=== PATIENT | male | born 1970 | race Caucasian/White ===

== ENCOUNTER 2023-03-14 05:56 | Day surgery (SDC) | payer OTHER, SELFPAY ==
[2023-03-12 13:57] VITALS: BMI 30.7
[2023-03-14 06:16] VITALS: BP 160/91; PULSE 51; RESP 18; TEMP 36.1; O2SAT 98
[2023-03-14] MEDS: sodium chloride 0.9% 1,000 ML 30 ML IV (06:16)
--- NOTE | 2023-03-14 06:54 | W.PM.OPSFHP ---
Same Day Surgery H&P Indication for Procedure/HPI DATE OF PROCEDURE: March 14, 2023 CHIEF COMPLAINT/INDICATIONFOR SURGICAL PROCEDURE: need for screening colonoscopy PREOP DIAGNOSIS: colorectal cancer screening, average risk. PLANNED PROCEDURE: Operation Date: 03/14/23 07:00 Proposed Procedures p Colonoscopy 19497,Z12.11(Not Applicable) - Robinson Ford MD Medications/Allergies* Home Medications Medication Instructions Recorded Confirmed Type albuterol (refill) 90 90 mcg inhalation Q4H PRN 01/30/23 03/14/23 History mcg/actuation aerosol inhaler Shortness Of Breath aspirin 81 mg tablet 81 mg PO DAILY 01/30/23 03/14/23 History b12 1,000 mcg PO DAILY 01/30/23 03/14/23 History bupropion HCl 150 mg 24 hr tablet, 150 mg PO QAM 01/30/23 03/14/23 History extended release cholecalciferol (vitamin D3) 25 25 mcg PO DAILY 01/30/23 03/14/23 History mcg (1,000 unit) capsule fluticasone propionate 50 1 spray intranasal BID 01/30/23 03/14/23 History mcg/actuation nasal spray,suspension gabapentin 100 mg capsule 100 mg PO BID 01/30/23 03/14/23 History hydrochlorothiazide 25 mg tablet 25 mg PO QAM 01/30/23 03/14/23 History losartan 100 mg tablet 100 mg PO DAILY 01/30/23 03/14/23 History meloxicam 15 mg tablet 15 mg PO DAILY 01/30/23 03/14/23 History multivitamin 1 tab PO DAILY 01/30/23 03/14/23 History oxycodone-acetaminophen 5 mg-325 1 tab PO BID PRN Pain 01/30/23 03/14/23 History mg tablet (Percocet) pantoprazole 40 mg tablet,delayed 40 mg PO BID 01/30/23 03/14/23 History release potassium chloride 10 mEq 10 meq PO DAILY 01/30/23 03/14/23 History capsule,extended release amlodipine 5 mg tablet 10 mg PO DAILY 03/12/23 03/14/23 History Allergies/Adverse Reactions Allergy/AdvReac Type Severity Reaction Status Date / Time lisinopril Allergy ADR-Cough Uncoded 03/14/23 06:08 Current Medications: Generic Name Dose Route Start Last Admin Trade Name Freq PRN Reason Stop Dose Admin Sodium Chloride 1,000 mls @ 30 mls/hr 03/14/23 06:00 03/14/23 06:16 Sodium Chloride 0.9% IV 30 mls/hr .Q24H NATHANIEL Administration Pertinent Exam Findings alert, oriented x 3, clear to auscultation bilaterally, regular rate & rhythm and procedure specific exam findings (abdomen soft, non tender) Recommendations Surgery/Procedure today Coding Level of Care Code Acute Code for Chg Fwd Diagnoses
--- NOTE | 2023-03-14 06:56 | P.ANESASSM_ITS ---
Pre-Anesthetic Assessment Height/Weight: Height 1.8 m Weight 99.79 kg Temp Pulse Resp BP Pulse Ox O2 Del Method 97.0 F L 51 L 18 160/91 98 Room Air 03/14/23 06:16 03/14/23 06:16 03/14/23 06:16 03/14/23 06:16 03/14/23 06:16 03/14/23 06:16 Preop Diagnosis: colorectal cancer screening, average risk. Operation Date: 03/14/23 07:00 Proposed Procedures p Colonoscopy 03942,Z12.11(Not Applicable) - Robinson Ford MD Familial anesthetic complications: none Was Beta Kleber taken within 24 hours: N/A Was Clonidine taken within 24 hours: N/A Last intake: Intake Last Liquid Date 03/13/23 Last Liquid Time 22:00 Last Solid Date 03/12/23 Last Solid Time 18:30 Social No alcohol and No tobacco Exam alert and oriented x 3 Airway Submandibular: within normal limits Cervical ROM: within normal limits Mallampati: Class II History/ROS No significant history except as noted Pulmonary Sleep Apnea CV/HEM Hypertension None reported Hepatic None reported GI Gastroesophageal Reflux Disease Metabolic None reported Musc/skel None reported Neuropsych None reported Anesthetic Plan ASA status: 3 Anesthesia: Anesthesia Evaluation, General and MAC Risk of > 500 ml blood loss (7ml/kg in children): No Medications/Allergies Home Medications Medication Instructions Recorded Confirmed Last Taken Type albuterol (refill) 90 90 mcg inhalation Q4H PRN 01/30/23 03/14/23 1 Week Ago History mcg/actuation aerosol inhaler Shortness Of Breath ~03/07/23 aspirin 81 mg tablet 81 mg PO DAILY 01/30/23 03/14/23 03/11/23 History b12 1,000 mcg PO DAILY 01/30/23 03/14/23 03/13/23 History bupropion HCl 150 mg 24 hr tablet, 150 mg PO QAM 01/30/23 03/14/23 03/13/23 History extended release cholecalciferol (vitamin D3) 25 25 mcg PO DAILY 01/30/23 03/14/23 03/13/23 History mcg (1,000 unit) capsule fluticasone propionate 50 1 spray intranasal BID 01/30/23 03/14/23 03/13/23 His tory mcg/actuation nasal spray,suspension gabapentin 100 mg capsule 100 mg PO BID 01/30/23 03/14/23 03/13/23 History hydrochlorothiazide 25 mg tablet 25 mg PO QAM 01/30/23 03/14/23 03/13/23 History losartan 100 mg tablet 100 mg PO DAILY 01/30/23 03/14/23 03/13/23 History meloxicam 15 mg tablet 15 mg PO DAILY 01/30/23 03/14/23 03/13/23 History multivitamin 1 tab PO DAILY 01/30/23 03/14/23 03/13/23 History oxycodone-acetaminophen 5 mg-325 1 tab PO BID PRN Pain 01/30/23 03/14/23 03/13/23 History mg tablet (Percocet) pantoprazole 40 mg tablet,delayed 40 mg PO BID 01/30/23 03/14/23 03/13/23 History release potassium chloride 10 mEq 10 meq PO DAILY 01/30/23 03/14/23 03/13/23 History capsule,extended release amlodipine 5 mg tablet 10 mg PO DAILY 03/12/23 03/14/23 03/13/23 History Allergies Allergy/AdvReac Type Severity Reaction Status Date / Time lisinopril Allergy ADR-Cough Uncoded 03/14/23 06:08 Current Medications Generic Name Dose Route Start Last Admin Trade Name Freq PRN Reason Stop Dose Admin Sodium Chloride 1,000 mls @ 30 mls/hr 03/14/23 06:00 03/14/23 06:16 Sodium Chloride 0.9% IV 30 mls/hr .Q24H NATHANIEL Administration Data Anesthesia Cardiac Studies: No Data to Display
[2023-03-14 07:27] VITALS: BP 124/67; PULSE 68; RESP 16; TEMP 36.4; O2SAT 93
[2023-03-14 07:47] VITALS: BP 134/73; PULSE 60; RESP 18; O2SAT 95
--- NOTE | 2023-03-14 12:46 | ANE.PACU2 ---
Inpatient post-anesthesia follow up: Airway intact: Yes Vital signs: Temperature 97.6 F Pulse Rate 60 Respiratory Rate 18 Blood Pressure 134/73 Pulse Oximetry 95 Oxygen Delivery Me thod Room Air Oxygen Flow Rate Fraction of Inspir ed Oxygen Hydration adequate: Yes Nausea and vomiting: No Pain level: 2 Mental status: Baseline
== END 2023-03-14 07:54 | disposition home or self-care (01) ==
PROVIDERS: PCP Family Medicine; Visit Provider Surgery
PROC: 0DJD8ZZ Inspection of Lower Intestinal Tract, Via Natural or Artificial Opening Endoscopic (ICD-10-PCS; CPT 45378; principal; 2023-03-14 07:00)
DX: Z12.11 Encounter for screening for malignant neoplasm of colon (principal); D12.8 Benign neoplasm of rectum; K63.5 Polyp of colon; G47.30 Sleep apnea, unspecified; I10 Essential (primary) hypertension; K21.9 Gastro-esophageal reflux disease without esophagitis
CPT/HCPCS: 45380; 88305; J2704; J7030

== ENCOUNTER 2025-06-29 17:00 | Outpatient (CLI) | payer OTHER, SELFPAY ==
--- NOTE | 2025-06-29 17:03 | CT_ITS ---
WS: [id number] CT ABDOMEN AND PELVIS WITH CONTRAST HISTORY: ABDOMINAL PAIN, DIARRHEA, FATIGUE TECHNIQUE: Imaging performed of the abdomen and pelvis with IV contrast. Single phase imaging of the abdomen. Coronal and sagittal reformats are submitted. All CT scans at [facility] use at least one of these dose optimization techniques: automated exposure control; mA and/or kV adjustment per patient size (includes targeted exams where dose is matched to clinical indication); or iterative reconstruction. IV CONTRAST: Omnipaque 350; 100 mL IV. Oral contrast: No DLP: 496.30 mGy.cm COMPARISON: 02/17/2009 Lower thorax: Small micronodules LEFT lower lung are stable since 2008. Normal size heart. No hiatal hernia. Liver/biliary system: Normal size with no intrahepatic dilatation. Gallbladder: Normal. No gallstones or wall thickening. No pericholecystic fluid. Pancreas: Normal size pancreas and pancreatic duct. No adjacent inflammation. Spleen: Normal size spleen with granuloma. Adjacent splenule. Adrenal glands: Normal. Right kidney: Normal size RIGHT kidney. There are multiple low-attenuation masses now identified within the RIGHT kidney. There are 3 masses which are well-circumscribed and low-attenuation. These are not simple cysts. Largest mass measures 1.5 x 1.9 cm from the posterior mid kidney. Similar attenuation mass in the from the anterior mid kidney and the lower pole. No obstruction. Left kidney: Normal size kidney. Low-attenuation lobulated mass from the anterior lower pole measures 2.0 x 1.8 cm. No obstruction. Aorta: Mild atherosclerosis with no aneurysm. Lymphadenopathy: None. Free fluid: None. GI tract: Stomach is distended with fluid and food products. No small bowel obstruction. The appendix is identified and normal. Moderate constipation. Mild diverticular burden in the sigmoid colon without acute diverticulitis. Abdominal wall: Fat containing umbilical hernia. Pelvis: No free fluid or adenopathy within the pelvis. Bones: Unremarkable. CT/CT abdomen pelvis w con* [id number] IMPRESSION: 1. No acute abdominal or pelvic abnormalities. 2. Bilateral indeterminate renal masses. These may be complex cysts or renal n eoplasms. Recommend follow-up MR or CT renal mass protocol, with and without IV contrast. 3. Normal appendix. 4. Moderate diffuse constipation. 5. Mild sigmoid diverticulosis without acute diverticulitis.
[2025-06-29] MEDS: iohexol 350 mg/mL 500 mL Btl (per mL) IV (17:17)
== END 2025-06-29 17:01 | disposition home or self-care (01) ==
LOC: RAD 17:01
PROVIDERS: PCP Family Medicine; Visit Provider Nurse Practitioner Family
DX: K59.00 Constipation, unspecified (principal); N28.89 Other specified disorders of kidney and ureter; K57.30 Diverticulosis of large intestine without perforation or abscess without bleeding; K42.9 Umbilical hernia without obstruction or gangrene
CPT/HCPCS: 74177